=== PATIENT | male | born 2005 | race Hispanic/Latino ===

== ENCOUNTER 2024-07-11 10:36 | Day surgery (SDC) | payer OTHER ==
[~2024-07-11] VITALS: Ht 180.3 cm; Wt 87.4 kg
[2024-07-11] MEDS: NS (Normal Saline) 0.9% 1,000 ML IV SCH (11:30)
[2024-07-11] MEDS ORDERED: fentaNYL 100 MCG/2 ML INJECTION As Ordered ONE (12:28)
[2024-07-11] MEDS ORDERED: ROCURONIUM BROMIDE 50MG/5ML VIAL As Ordered ONE (12:28)
[2024-07-11] MEDS ORDERED: SUGAMMADEX SODIUM 500 MG/5 ML VIAL (BRIDION) As Ordered ONE (12:28)
[2024-07-11] MEDS ORDERED: MIDAZOLAM INJ 2MG/2ML VIAL As Ordered ONE (12:28)
[2024-07-11] MEDS ORDERED: propofoL 200 MG/20 ML VIAL As Ordered ONE (12:28)
[2024-07-11] MEDS ORDERED: LIDOCAINE 2% 100MG/5ML SDV (FOR ANES.) As Ordered ONE (12:28)
[2024-07-11] MEDS ORDERED: ACETAMINOPHEN 1000MG/100ML IV BAG As Ordered ONE (12:29)
[2024-07-11] MEDS ORDERED: ONDANSETRON 4MG 2ML VIAL As Ordered ONE (12:35)
[2024-07-11] MEDS ORDERED: OXYMETAZOLINE 0.05% NASAL SPRAY (AFRIN) As Ordered ONE (13:11)
[2024-07-11] MEDS ORDERED: HYDROmorphone HCL 2MG/ML 1ML VIAL As Ordered ONE (14:08)
[2024-07-11] MEDS ORDERED: fentaNYL 100 MCG/2 ML INJECTION IV PRN (14:30)
[2024-07-11] MEDS ORDERED: NS (Normal Saline) 0.9% 1,000 ML IV SCH (14:30)
[2024-07-11] MEDS: HYDROMORPHONE HCL 0.5 MG/ 0.5 ML SYRINGE IV PRN (15:05)
[2024-07-11] MEDS: oxyCODONE 5MG TAB PO PRN (15:05)
[2024-07-11] MEDS: ONDANSETRON 4MG 2ML VIAL IV PRN (15:24)
[2024-07-11 15:50] VITALS: BP 131/75; TEMP 99.2; O2SAT 99
[2024-07-11] MEDS ORDERED: HYDROcodone/APAP LIQUID 7.5-325MG 15ML UDC (LORTAB ELIXIR) PO PRN (15:55)
[2024-07-11] MEDS ORDERED: LR 1,000 ML IV SCH (15:55)
== END 2024-07-11 16:25 | disposition home or self-care (01) ==
LOC: M SDC 10:36
PROVIDERS: ATTEND Otolaryngology
DX: J35.03 Chronic tonsillitis and adenoiditis (principal); F17.290 Nicotine dependence, other tobacco product, uncomplicated; J34.2 Deviated nasal septum
CPT/HCPCS: 42821; 88302; J0131; J0665; J1100; J1171; J2250; J2405; J3010

== ENCOUNTER 2024-08-18 07:34 | Emergency (ER) | payer OTHER ==
[~2024-08-18] VITALS: Ht 180.3 cm; Wt 86.5 kg
[2024-08-18 11:38] LABS: BASO % 0.1 % (0.0-1.0); EOS # 0.1 10^3/uL (0.0-0.5); EOS % 0.9 % (0.0-3.0); HEMATOCRIT 46.2 % (42.0-52.0); HEMOGLOBIN 15.2 g/dl (13.5-17.5); LYMPH # 0.7 10^3/uL (1.5-5.0); LYMPH % 10.3 % (24.0-44.0); MEAN CORPUSCULAR HEMOGLOBIN 29.1 pg (27.0-33.0); MEAN CORPUSCULAR HGB CONC 32.9 g/dl (32.0-36.5); MEAN CORPUSCULAR VOLUME 88.5 fl (80.0-96.0); MONO # 0.7 10^3/uL (0.0-0.8); MONO % 9.4 % (2.0-8.0); NEUTROPHILS # 5.5 10^3/uL (1.5-8.5); PLATELET COUNT, AUTOMATED 207 10^3/uL (150-450); RED BLOOD COUNT 5.22 10^6/uL (4.30-6.10); WHITE BLOOD COUNT 6.9 10^3/uL (4.0-10.0)
[2024-08-18] MEDS ORDERED: ISOVUE-370 76% 100ML VIAL As Ordered ONE (12:05)
[2024-08-18 12:47] LABS: ALBUMIN 4.1 G/DL (3.2-5.2); BILIRUBIN,DIRECT 0.3 MG/DL (<0.4); BILIRUBIN,TOTAL 0.8 MG/DL (0.3-1.2); TOTAL PROTEIN 7.6 G/DL (5.7-8.2)
[2024-08-18] MEDS ORDERED: COLA100C5 PO (13:05)
[2024-08-18] MEDS: MAGNESIUM CITRATE 300ML BTL PO ONE (13:09)
[2024-08-18 13:15] VITALS: BP 115/59; TEMP 98.1; O2SAT 96
== END 2024-08-18 13:16 | disposition home or self-care (01) ==
LOC: M ED 07:34
DX: K59.00 Constipation, unspecified (principal); Z79.899 Other long term (current) drug therapy
CPT/HCPCS: 36415; 74177; 80047; 80076; 83690; 85025; 87486; 87581; 87633; 87798; 99284; Q9967

== ENCOUNTER 2025-03-07 09:17 | Day surgery (SDC) | payer OTHER ==
[~2025-03-07] VITALS: Ht 180.3 cm; Wt 97.3 kg
[~2025-03-07 09:17] MED LIST: COLA100C5 PO
[2025-03-07] MEDS: LR 1,000 ML IV SCH (09:45)
[2025-03-07] MEDS ORDERED: SUGAMMADEX SODIUM 500 MG/5 ML VIAL As Ordered ONE (10:38)
[2025-03-07] MEDS ORDERED: ONDANSETRON 4MG 2ML VIAL As Ordered ONE (10:38)
[2025-03-07] MEDS ORDERED: LIDOCAINE 2% 100 MG/5 ML SDV (FOR ANES.) As Ordered ONE (10:38)
[2025-03-07] MEDS ORDERED: ROCURONIUM BROMIDE 50MG/5ML VIAL As Ordered ONE (10:38)
[2025-03-07] MEDS ORDERED: MIDAZOLAM INJ 2 MG/2 ML VIAL As Ordered ONE (10:39)
[2025-03-07] MEDS ORDERED: dexAMETHasone 4 MG/ML 1 ML VIAL As Ordered ONE (10:39)
[2025-03-07] MEDS ORDERED: dexmedeTOMIDine (4 MCG/ML) 200 MCG/50 ML BTL As Ordered ONE (11:50)
[2025-03-07] MEDS: COCAINE 4% 4 ML NASAL SOLUTION BTL As Ordered ONE (12:26)
[2025-03-07] MEDS: LIDOCAINE W/EPINEPHrine 1% 20 ML VIAL As Ordered ONE (13:01)
[2025-03-07] MEDS: OXYMETAZOLINE 0.05% NASAL SPRAY As Ordered ONE (13:04)
[2025-03-07] MEDS ORDERED: MORPHINE 4 MG/ML 1 ML VIAL IV PRN (13:35)
[2025-03-07] MEDS ORDERED: ONDANSETRON 4MG 2ML VIAL IV PRN (13:35)
[2025-03-07 14:46] VITALS: BP 133/70; TEMP 97.7; O2SAT 99
== END 2025-03-07 15:03 | disposition home or self-care (01) ==
LOC: M SDC 09:17
PROVIDERS: ATTEND Otolaryngology
DX: J34.2 Deviated nasal septum (principal); J34.3 Hypertrophy of nasal turbinates; Z90.89 Acquired absence of other organs
CPT/HCPCS: 30140; 30520; C9143; J1100; J2250; J2405; J3010